=== PATIENT | female | born 1980 ===

== ENCOUNTER → 2018-12-15 | Outpatient (REF) | payer BC ==
[2018-12-20 14:20] LABS: HPV HYBRID CAPTURE II Negative (Negative)
== END ==
LOC: M LAB LCGH 11:52
PROVIDERS: ATTEND Obstetrics & Gynecology
DX: R87.610 Atypical squamous cells of undetermined significance on cytologic smear of cervix (ASC-US) (principal)
CPT/HCPCS: 87624; G0123